=== PATIENT | male | born 1955 | race Caucasian/White ===

== ENCOUNTER 2016-12-03 01:09 | Inpatient (IN) | payer MEDICARE, OTHER ==
[~2016-12-03] VITALS: Ht 185.4 cm; Wt 72.6 kg
[~2016-12-03 01:09] MED LIST: ACET-2154 PO; ASCO500C16 PO; BISA10SU61 RC; CARB-93 PO; DEXT1CAP3 PO; DIVA250T4 PO; DOCU-141 PO; LAMO25TA5 PO; LORA-258 PO; MAGN400O6 PO; MULT-213 PO; NA P133E RC; VENL150C2 PO; ZINC220C8 PO; ZOLP5TAB2 PO
--- NOTE | 2016-12-03 01:22 | NUR ---
Patient BIB private ambulance for Medical Clearance and GPS admission. Patient arrives on 5150 hold for GD. Per hold, patient is "suffering worsening symptoms of psychosis and eric" and is refusing medications. Per hold, patient has not eaten today because he beleives that the food was poisioned. Patient is A/O x4, presents with Parkinson's like tremors. To room 3A.
[2016-12-03] MEDS ORDERED: DIVA500T4 PO (01:45)
[2016-12-03] MEDS ORDERED: LAMO25TA5 PO (01:45)
[2016-12-03] MEDS ORDERED: LEVO50TA8 PO (01:45)
[2016-12-03] MEDS ORDERED: LORAZEPAM 1 MG TABLET PO PRN (02:00)
[2016-12-03] MEDS ORDERED: ACETAMINOPHEN 325 MG TABLET PO PRN (02:00)
[2016-12-03] MEDS ORDERED: TEMAZEPAM 7.5 MG CAPSULE PO PRN (02:00)
[2016-12-03] MEDS ORDERED: MAGNESIUM HYDROXIDE 30 ML LIQUID UDC PO PRN (02:00)
[2016-12-03] MEDS ORDERED: MAG HYDROX/AL HYDROX/SIMETH 30 ML LIQUID UDC PO PRN (02:00)
--- NOTE | 2016-12-03 02:12 | NUR ---
Pt. admitted to GPS, under care of Dr. Phoenix Belongs List completed
[2016-12-03 02:54] VITALS: BP 143/93
--- NOTE | 2016-12-03 03:00 | NUR ---
GPS: Admitted earlier a 61 yr.old male from [facility] under the care of / in stable condition. Pt.is on a 72 hour hold for GD. Pt.has been off of his meds.for 2 weeks and has been refusing to eat thinking that he's being poisoned. Pt.is Aox3, intrusive,uncooperative,demanding during admission process. Easily irritable/agitated when being interviewed by staff. Belongings list completed. Refused/unable to sign paperworks. Safety emphasized. Re-directed prn. Will monitor behavior.
[2016-12-03 07:30] VITALS: BP 173/83
--- NOTE | 2016-12-03 08:31 | NUR ---
GPS: Nursing Notes: Refusing B/P Medication: Patient's B/P=173/83, P=88, refusing his antihypertensive medication PRN, believes that staff is trying to poison him, gets easily irritable and angry, verbal abusive toward staff, continue to monitor for safety, informed charge nurse, continue with treatment plan.
[2016-12-03] MEDS: CARBIDOPA/LEVODOPA 25-100MG TABLET PO SCH ×3 (09:45→16:17)
[2016-12-03] MEDS: LEVOTHYROXINE SODIUM 50 MCG TABLET PO SCH (09:45)
[2016-12-03] MEDS: DIVALPROEX SPRINKLE 125 MG CAP.SPRINK PO SCH ×2 (12:30→20:07)
[2016-12-03] MEDS ORDERED: DIVALPROEX SPRINKLE 125 MG CAP.SPRINK ONE (13:02)
[2016-12-03] MEDS ORDERED: CARBIDOPA/LEVODOPA 25-100MG TABLET ONE (13:02)
[2016-12-03 16:00] VITALS: BP 159/89
[2016-12-03] MEDS: CLONIDINE HCL 0.1 MG TABLET PO PRN (19:41)
--- NOTE | 2016-12-03 19:42 | NUR ---
GPS: B/P at this time is 169/96. Refused Clonidine prn when offered despite explanation of importance. Easily irritable when approached by staff. Will continue to monitor.
[2016-12-03 19:48] VITALS: BP 162/96
[2016-12-04] MEDS: LEVOTHYROXINE SODIUM 50 MCG TABLET PO SCH (06:32)
--- NOTE | 2016-12-04 06:40 | NUR ---
GPS: Pt.continues to refuse scheduled meds.despite explanation of importance. Paranoid,suspicious and easily irritable when being persuaded to take his meds. Continues to be demanding and verbally abusive when his demands are not granted. Safety emphasized. Will continue to re-direct prn.
[2016-12-04 07:30] VITALS: BP 112/70
[2016-12-04] MEDS: DIVALPROEX SPRINKLE 125 MG CAP.SPRINK PO SCH ×2 (08:05→20:52)
[2016-12-04] MEDS: CARBIDOPA/LEVODOPA 25-100MG TABLET PO SCH ×3 (08:06→16:22)
[2016-12-04 13:00] VITALS: BP 170/101
[2016-12-04] MEDS: CLONIDINE HCL 0.1 MG TABLET PO PRN (14:33)
--- NOTE | 2016-12-04 14:33 | NUR ---
GPS: Nursing Notes: Refusing Clonidine: Patient B/P= 175/101, P=84, refusing his antihypertensive medication PRN, continue to be paranoid, believes that we are trying to poison him, poor anger management, nurse in charge informed, continue to monitor the patient.
[2016-12-04] MEDS: OLANZAPINE ZYDIS 5 MG TAB.RAPDIS PO SCH (17:45)
--- NOTE | 2016-12-04 17:58 | NUR ---
GPS: Nursing Notes: Noncompliance With Medications: Patient is awake and responding to his name, poor anger management, poor impulse control, loud and pressured speech, refusing his psych. medications, stated, "You take them... I am a doctor..", paranoid, suspicious, guarded, believes that we are trying to poison him, verbal abusive toward staff, "Fuck you...", internally preoccupied, impaired judgment, "You work for me.... I paid your check... You are fired... Fuck you..", unable to formulate a plan for self care, continue with treatment plan.
[2016-12-04 19:30] VITALS: BP 153/98
[2016-12-05] MEDS: LEVOTHYROXINE SODIUM 50 MCG TABLET PO SCH (06:18)
[2016-12-05 07:30] VITALS: BP 139/85
[2016-12-05] MEDS: OLANZAPINE ZYDIS 5 MG TAB.RAPDIS PO SCH ×2 (08:34→16:33)
[2016-12-05] MEDS: CARBIDOPA/LEVODOPA 25-100MG TABLET PO SCH ×3 (08:34→16:33)
[2016-12-05] MEDS: DIVALPROEX SPRINKLE 125 MG CAP.SPRINK PO SCH ×2 (08:34→20:24)
[2016-12-05 15:31] VITALS: BP 152/90
[2016-12-05 20:00] VITALS: BP 162/98
[2016-12-05] MEDS: CLONIDINE HCL 0.1 MG TABLET PO PRN (20:24)
[2016-12-06] MEDS: LEVOTHYROXINE SODIUM 50 MCG TABLET PO SCH (06:14)
[2016-12-06 07:30] VITALS: BP 157/92
[2016-12-06] MEDS: CARBIDOPA/LEVODOPA 25-100MG TABLET PO SCH ×3 (08:50→16:49)
[2016-12-06] MEDS: OLANZAPINE ZYDIS 5 MG TAB.RAPDIS PO SCH ×2 (08:50→16:50)
[2016-12-06] MEDS: DIVALPROEX SPRINKLE 125 MG CAP.SPRINK PO SCH ×2 (08:50→21:00)
--- NOTE | 2016-12-06 09:20 | NUR ---
DC Note:Pt resides at [facility] [[address], [place], [place],[address];[phone]].Per pt,he would like to return back there upon discharge.Spoke with pt's sister,Sera Beal [phone] who stated she would like the pt to return there once stable.Per sister,she does not want the pt placed at a SNF upon discharge.MOMO called and left a voicemail in admissions requesting call back to discuss discharge plans.MOMO will speak with pt,family,and MD regarding appropriate discharge plans.SW will form a safe and proper discharge plan.
[2016-12-07] MEDS: LEVOTHYROXINE SODIUM 50 MCG TABLET PO SCH (07:00)
[2016-12-07 07:30] VITALS: BP 172/93
[2016-12-07] MEDS: DIVALPROEX SPRINKLE 125 MG CAP.SPRINK PO SCH ×2 (08:57→20:52)
[2016-12-07] MEDS: OLANZAPINE ZYDIS 5 MG TAB.RAPDIS PO SCH ×2 (08:57→17:00)
[2016-12-07] MEDS: CARBIDOPA/LEVODOPA 25-100MG TABLET PO SCH ×3 (08:57→17:00)
--- NOTE | 2016-12-07 13:13 | NUR ---
GPS/RN- patient scheduled for [facility] Day [facility] tomorrow and [facility] at 230pm, Dr Flor notified.
--- NOTE | 2016-12-07 13:14 | NUR ---
GPS/RN- patients , Nelida , here to visit , patient gave verbal consent to speak with her at this time, patient spoke with and Site Administrator Amanda at this time. questions and concerns addressed.
[2016-12-07 16:00] VITALS: BP 189/97
[2016-12-07] MEDS: CLONIDINE HCL 0.1 MG TABLET PO PRN (17:09)
[2016-12-07] MEDS: HYDROCHLOROTHIAZIDE 25 MG TABLET PO SCH (20:15)
[2016-12-08] MEDS: LEVOTHYROXINE SODIUM 50 MCG TABLET PO SCH (06:43)
[2016-12-08 07:30] VITALS: BP 170/109
[2016-12-08] MEDS: OLANZAPINE ZYDIS 5 MG TAB.RAPDIS PO SCH (08:18)
[2016-12-08] MEDS: HYDROCHLOROTHIAZIDE 25 MG TABLET PO SCH (08:18)
[2016-12-08] MEDS: CARBIDOPA/LEVODOPA 25-100MG TABLET PO SCH ×3 (08:18→17:00)
[2016-12-08] MEDS: DIVALPROEX SPRINKLE 125 MG CAP.SPRINK PO SCH ×2 (08:18→20:18)
--- NOTE | 2016-12-08 09:59 | NUR ---
GPS/RN- Patient received in bed this am, staff attempting to take vital signs, patient combative swinging towards staff. patient redirected , patient continues paranoid and suspicious, verbally abusive telling staff " Get the fuck out of here". patient redirected and educated we need to check blood pressure and other vitals to make sure he is stable. patient continues to have poor insight and impaired judgement. patient remains paranoid of food, believes it is being contaminated or poisoned by staff, refused am meal;patient also refused am meds, multiple attempts this am; verbalizing the meds are only intended to make his blood pressure higher, patient educated once again. Physical therapy also working with patient, passive range of motion, patient verbally abusive, verbalizing that they are breaking his hands, patient redirected range of motion provided to prevent any contractures of musculoskeletal issues, patient argumentative and irritable. unable to redirect,
[2016-12-08 15:49] VITALS: BP 151/94
[2016-12-08] MEDS: HALOPERIDOL LACTATE 10 MG/5 ML ORAL SOLUTION UDC PO SCH (17:00)
[2016-12-08] MEDS: BENZTROPINE MESYLATE 0.5 MG TABLET PO SCH (17:00)
[2016-12-08] MEDS: HALOPERIDOL LACTATE 5 MG/1 ML VIAL IM PRN (17:16)
[2016-12-08] MEDS: Z GUARD REMEDY PASTE 57 GM TUBE TOP SCH (20:18)
[2016-12-08 20:56] VITALS: BP 153/92
[2016-12-09] MEDS: LEVOTHYROXINE SODIUM 50 MCG TABLET PO SCH (06:35)
[2016-12-09 07:30] VITALS: BP 169/89
[2016-12-09] MEDS: BENZTROPINE MESYLATE 0.5 MG TABLET PO SCH ×2 (09:00→16:48)
[2016-12-09] MEDS: HALOPERIDOL LACTATE 10 MG/5 ML ORAL SOLUTION UDC PO SCH ×2 (09:00→16:48)
[2016-12-09] MEDS: DIVALPROEX SPRINKLE 125 MG CAP.SPRINK PO SCH ×2 (09:00→20:13)
[2016-12-09] MEDS: CARBIDOPA/LEVODOPA 25-100MG TABLET PO SCH ×3 (09:00→16:48)
[2016-12-09] MEDS: HYDROCHLOROTHIAZIDE 25 MG TABLET PO SCH (09:00)
[2016-12-09] MEDS: Z GUARD REMEDY PASTE 57 GM TUBE TOP SCH ×2 (09:06→20:13)
[2016-12-09] MEDS: HALOPERIDOL LACTATE 5 MG/1 ML VIAL IM PRN ×2 (09:42→17:01)
[2016-12-10] MEDS: LEVOTHYROXINE SODIUM 50 MCG TABLET PO SCH (06:36)
[2016-12-10 07:30] VITALS: BP 144/93
[2016-12-10] MEDS: CARBIDOPA/LEVODOPA 25-100MG TABLET PO SCH ×3 (08:38→16:24)
[2016-12-10] MEDS: DIVALPROEX SPRINKLE 125 MG CAP.SPRINK PO SCH ×2 (08:38→20:25)
[2016-12-10] MEDS: HYDROCHLOROTHIAZIDE 25 MG TABLET PO SCH (08:38)
[2016-12-10] MEDS: HALOPERIDOL LACTATE 10 MG/5 ML ORAL SOLUTION UDC PO SCH ×2 (08:38→16:22)
[2016-12-10] MEDS: BENZTROPINE MESYLATE 0.5 MG TABLET PO SCH ×2 (08:38→16:22)
[2016-12-10] MEDS: Z GUARD REMEDY PASTE 57 GM TUBE TOP SCH ×2 (08:39→20:25)
[2016-12-10] MEDS: HALOPERIDOL LACTATE 5 MG/1 ML VIAL IM PRN ×2 (08:51→16:31)
[2016-12-10 16:00] VITALS: BP 176/99
[2016-12-10] MEDS: CLONIDINE HCL 0.1 MG TABLET PO PRN (17:35)
[2016-12-10 20:56] VITALS: BP 159/92
[2016-12-11] MEDS: LEVOTHYROXINE SODIUM 50 MCG TABLET PO SCH (06:33)
[2016-12-11 07:30] VITALS: BP 163/98
[2016-12-11] MEDS: BENZTROPINE MESYLATE 0.5 MG TABLET PO SCH ×2 (08:41→16:47)
[2016-12-11] MEDS: HYDROCHLOROTHIAZIDE 25 MG TABLET PO SCH (08:41)
[2016-12-11] MEDS: DIVALPROEX SPRINKLE 125 MG CAP.SPRINK PO SCH ×2 (08:41→20:13)
[2016-12-11] MEDS: HALOPERIDOL LACTATE 10 MG/5 ML ORAL SOLUTION UDC PO SCH ×2 (08:41→16:47)
[2016-12-11] MEDS: Z GUARD REMEDY PASTE 57 GM TUBE TOP SCH ×2 (08:42→21:06)
[2016-12-11] MEDS: CARBIDOPA/LEVODOPA 25-100MG TABLET PO SCH ×3 (08:42→16:47)
[2016-12-11] MEDS: CLONIDINE HCL 0.1 MG TABLET PO PRN (09:32)
[2016-12-11] MEDS: HALOPERIDOL LACTATE 5 MG/1 ML VIAL IM PRN ×2 (09:36→16:54)
[2016-12-11 15:33] VITALS: BP 116/74
[2016-12-11 20:14] VITALS: BP 144/87
[2016-12-12] MEDS: LEVOTHYROXINE SODIUM 50 MCG TABLET PO SCH (06:29)
[2016-12-12 07:30] VITALS: BP 133/90
[2016-12-12] MEDS: BENZTROPINE MESYLATE 0.5 MG TABLET PO SCH ×2 (08:48→16:22)
[2016-12-12] MEDS: DIVALPROEX SPRINKLE 125 MG CAP.SPRINK PO SCH ×2 (08:49→20:13)
[2016-12-12] MEDS: HALOPERIDOL LACTATE 10 MG/5 ML ORAL SOLUTION UDC PO SCH ×2 (08:49→16:22)
[2016-12-12] MEDS: Z GUARD REMEDY PASTE 57 GM TUBE TOP SCH ×2 (08:49→20:18)
[2016-12-12] MEDS: HYDROCHLOROTHIAZIDE 25 MG TABLET PO SCH (08:49)
[2016-12-12] MEDS: CARBIDOPA/LEVODOPA 25-100MG TABLET PO SCH ×3 (08:49→16:22)
[2016-12-12] MEDS: HALOPERIDOL LACTATE 5 MG/1 ML VIAL IM PRN ×2 (09:03→18:15)
[2016-12-12 15:46] VITALS: BP 157/93
--- NOTE | 2016-12-12 17:57 | NUR ---
GPS: Nursing Notes: Noncompliance With Medications: Patient is awake and responding to his name, poor anger management, verbal abusive, provoking roommate to fight by using profanities and racial statement toward roommate, paranoid behavior, refusing his medications, believes that we are trying to poison him, resistant with nursing care, internally preoccupied, refusing to eat his meals, believes that the food is poison, impaired judgment, unable to formulate a plan for self care, continue with treatment plan.
[2016-12-12 20:00] VITALS: BP 128/80
[2016-12-13] MEDS: LEVOTHYROXINE SODIUM 50 MCG TABLET PO SCH (06:32)
[2016-12-13 07:30] VITALS: BP 137/74
[2016-12-13] MEDS: DIVALPROEX SPRINKLE 125 MG CAP.SPRINK PO SCH ×2 (09:00→21:00)
[2016-12-13] MEDS: BENZTROPINE MESYLATE 0.5 MG TABLET PO SCH ×2 (09:00→17:00)
[2016-12-13] MEDS: CARBIDOPA/LEVODOPA 25-100MG TABLET PO SCH ×3 (09:00→18:18)
[2016-12-13] MEDS: Z GUARD REMEDY PASTE 57 GM TUBE TOP SCH ×2 (09:00→21:06)
[2016-12-13] MEDS: HALOPERIDOL LACTATE 10 MG/5 ML ORAL SOLUTION UDC PO SCH ×2 (09:00→18:18)
[2016-12-13] MEDS: HYDROCHLOROTHIAZIDE 25 MG TABLET PO SCH (09:00)
[2016-12-13] MEDS: HALOPERIDOL LACTATE 5 MG/1 ML VIAL IM PRN ×2 (10:11→18:21)
[2016-12-13 16:00] VITALS: BP 145/87
[2016-12-13] MEDS ORDERED: MAGNESIUM HYDROXIDE 30 ML LIQUID UDC PO ONE (16:45)
[2016-12-13] MEDS: DOCUSATE SODIUM 100 MG CAPSULE PO SCH ×2 (18:21→21:00)
[2016-12-13 20:51] VITALS: BP 121/83
--- NOTE | 2016-12-13 22:00 | NUR ---
received to care, lying in bed, initially pleasant upon approach. PO fluids given to patient at his request, ice water and lemon [place] soda. his then came, and he allowed her to feed him a hamburger and more fluids. when approached with his medications, he refused. he also stated that staff would not give him anything to eat or drink. he was then offered more ice water, but demanded coffee. he was then offered bam crackers and juice, but he stated it was poisoned. when offered his medications, he refused, stating, "f--k you" as of 2199, he remains awake. no distress noted. diaper change provided. repositioned with pillows. will continue to monitor closely.
--- NOTE | 2016-12-13 23:00 | NUR ---
appears to be asleep. no distress noted.
--- NOTE | 2016-12-14 04:00 | NUR ---
pt is now awake, requesting water. he was offered water from his water pitcher, but he refused, stating he wanted "water that wasnt flat". he was brought fresh water with ice, but he declined. later, he requested water again. he was offered the newer water, and he agreed to drink with a straw. when a straw was provided, he stated he wanted a new straw, even though it was new, and opened right in front of him. firm limits were set. he then was verbally abusive. he was re approached yet again and offered water, but he again wanted fresh water, even when offered sealed bottled water. he then said "f--k you" "you people are keeping me against my will" he was offered water once more, but he continues to refuse.
--- NOTE | 2016-12-14 06:00 | NUR ---
slept 4 hours, total. assisted with AM care, and shower. currently in bed. continues to be verbally abusive. offered water, but refused. states he will only drink soda. firm limits set. will continue to monitor closely.
[2016-12-14] MEDS: LEVOTHYROXINE SODIUM 50 MCG TABLET PO SCH (07:00)
--- NOTE | 2016-12-14 07:00 | NUR ---
refused AM synthroid
[2016-12-14 07:29] LABS: BASOPHILS # (AUTO) 0.1 K/uL (0.0-8.0); BASOPHILS % (AUTO) 0.8 % (0.0-2.0); EOSINOPHILS # (AUTO) 0.2 K/uL (0.0-0.7); EOSINOPHILS % (AUTO) 3.1 % (0.0-7.0); HEMATOCRIT 42.2 % (40-50); HEMOGLOBIN 14.3 G/DL (14.0-18.0); LYMPHOCYTES # (AUTO) 2.3 K/UL (0.8-4.8); LYMPHOCYTES % (AUTO) 32.9 % (20.5-51.5); MEAN CORPUSCULAR HEMOGLOBIN 30.6 UUG (27.0-31.0); MEAN CORPUSCULAR HGB CONC 34 g/dL (32.0-37.0); MEAN CORPUSCULAR VOLUME 90.6 FL (82.0-92.0); MONOCYTES # (AUTO) 0.4 K/UL (0.1-1.30); MONOCYTES % (AUTO) 5.6 % (0.0-11.0); NEUTROPHILS # (AUTO) 4.1 K/UL (1.8-8.9); NEUTROPHILS % (AUTO) 57.6 % (38.5-71.5); PLATELET COUNT (AUTO) 416 K/UL (150-450); RED BLOOD CELL COUNT(AUTO) 4.66 MIL/UL (4.7-6.1); WHITE BLOOD COUNT (AUTO) 7.1 K/UL (4.0-11.2)
[2016-12-14 07:30] VITALS: BP 129/72
[2016-12-14 07:42] LABS: BILIRUBIN,TOTAL 0.3 mg/dL (0.2-1.0); CREATININE 1.5 mg/dL (0.6-1.3); PHOSPHOROUS 3.4 mg/dL (2.5-4.9); POTASSIUM 3.5 mmol/L (3.5-5.1); TOTAL PROTEIN, SERUM 7.3 g/dL (6.4-8.2)
[2016-12-14 07:58] LABS: THYROID STIMULATING HORMONE 2.587 mIU/mL (0.358-3.740)
[2016-12-14] MEDS: CARBIDOPA/LEVODOPA 25-100MG TABLET PO SCH ×3 (08:57→17:00)
[2016-12-14] MEDS: DOCUSATE SODIUM 100 MG CAPSULE PO SCH ×2 (08:57→21:00)
[2016-12-14] MEDS: HYDROCHLOROTHIAZIDE 25 MG TABLET PO SCH (08:57)
[2016-12-14] MEDS: DIVALPROEX SPRINKLE 125 MG CAP.SPRINK PO SCH ×2 (08:57→21:00)
[2016-12-14] MEDS: BENZTROPINE MESYLATE 0.5 MG TABLET PO SCH ×2 (08:57→17:00)
[2016-12-14] MEDS: HALOPERIDOL LACTATE 10 MG/5 ML ORAL SOLUTION UDC PO SCH ×2 (08:57→17:00)
[2016-12-14] MEDS: Z GUARD REMEDY PASTE 57 GM TUBE TOP SCH ×2 (10:29→20:44)
--- NOTE | 2016-12-14 11:06 | NUR ---
GPS/RN- Dr Flor notified of patient labs today, received verbal order to administer Haldol Deconate 25mg IM once at this time. orders read back.
[2016-12-14] MEDS ORDERED: HALOPERIDOL DECANOATE 50 MG/1 ML AMPUL IM ONE (11:15)
[2016-12-14 11:20] VITALS: BP 126/83
[2016-12-14] MEDS ORDERED: MAGNESIUM HYDROXIDE 30 ML LIQUID UDC PO ONE (16:00)
[2016-12-14] MEDS ORDERED: BISACODYL 10 MG SUPP.RECT RC ONE (16:00)
[2016-12-14 16:07] VITALS: BP 145/78
--- NOTE | 2016-12-14 16:53 | NUR ---
GPS/RN- Patient scheduled for discharge tomorrow. patient redirected to medication compliance; no bowel movement noted since admission and current orders for Milk Of Magnesia and suppository, patient addressed about medical concern of possible impaction/sever constipation. patient able to comply due to possible discharge tomorrow. compliant. continue to monitor. patient on left side at this time
[2016-12-14] MEDS: HALOPERIDOL LACTATE 5 MG/1 ML VIAL IM PRN (17:45)
[2016-12-14 19:30] VITALS: BP 146/44
--- NOTE | 2016-12-14 22:00 | NUR ---
received to care, lying in bed, verbally hostile, and sarcastic, upon approach. remains delusional and paranoid. refused all medications offered. believes staff is conspiring against him. had a small, soft bowel movement. po fluids given. as of 2199, he appears to be asleep. no dsitress noted. will continue to monitor closely.
[2016-12-15] MEDS ORDERED: BISACODYL 10 MG SUPP.RECT RC PRN (06:00)
--- NOTE | 2016-12-15 06:00 | NUR ---
slept 3 hours total. assisted with AM care, and diaper change. no further episodes of stool. no distress noted. will continue to monitor closely.
[2016-12-15] MEDS: LEVOTHYROXINE SODIUM 50 MCG TABLET PO SCH ×2 (06:12→10:21)
[2016-12-15 07:30] VITALS: BP 141/88
[2016-12-15 07:53] LABS: BASOPHILS % (AUTO) 0.2 % (0.0-2.0); EOSINOPHILS # (AUTO) 0.1 K/uL (0.0-0.7); EOSINOPHILS % (AUTO) 0.8 % (0.0-7.0); HEMATOCRIT 44.2 % (40-50); HEMOGLOBIN 14.6 G/DL (14.0-18.0); LYMPHOCYTES # (AUTO) 1.3 K/UL (0.8-4.8); LYMPHOCYTES % (AUTO) 8.2 % (20.5-51.5); MEAN CORPUSCULAR HEMOGLOBIN 29.3 UUG (27.0-31.0); MEAN CORPUSCULAR HGB CONC 33 g/dL (32.0-37.0); MEAN CORPUSCULAR VOLUME 88.9 FL (82.0-92.0); MONOCYTES % (AUTO) 5.8 % (0.0-11.0); PLATELET COUNT (AUTO) 445 K/UL (150-450); RED BLOOD CELL COUNT(AUTO) 4.98 MIL/UL (4.7-6.1)
[2016-12-15 07:55] LABS: WHITE BLOOD COUNT (AUTO) 16.4 K/UL (4.0-11.2)
[2016-12-15 08:22] LABS: BILIRUBIN,DIRECT 0.1 mg/dL (0.0-0.2); BILIRUBIN,TOTAL 0.5 mg/dL (0.2-1.0); CREATININE 1.3 mg/dL (0.6-1.3); MAGNESIUM 2.1 mg/dL (1.8-2.4); PHOSPHOROUS 2.7 mg/dL (2.5-4.9); POTASSIUM 3.7 mmol/L (3.5-5.1)
--- NOTE | 2016-12-15 08:22 | NUR ---
DC Note: Patient [place] be [place] today [place] [place] [address] via private transportation at 12:00 pm. Patient will be picked up by his , Audrey [phone]. Audrey stated she will take the patient home. Patient is aware and agreeable with discharge plans. Spoke with patients sister, Sera [phone] who is aware and agreeable with discharge plans. Patient will follow-up with [[address] [place] [address]]. Patient was referred to , , and [phone] for psychiatric referrals. A home health order was faxed to [facility] [ /Fx: [phone]] for safety evaluation. The patient will attend [employer] on Sunday12/18/16 at 2:00 pm [[address] [place] [address]].
[2016-12-15] MEDS: Z GUARD REMEDY PASTE 57 GM TUBE TOP SCH (09:00)
[2016-12-15] MEDS: DIVALPROEX SPRINKLE 125 MG CAP.SPRINK PO SCH ×2 (09:00→10:21)
[2016-12-15] MEDS: DOCUSATE SODIUM 100 MG CAPSULE PO SCH (09:00)
[2016-12-15 10:00] LABS: BAND % (MANUAL) 5 % (0-10); LYMPHOCYTES % (MANUAL) 10 % (20-40); MONOCYTES % (MANUAL) 9 % (2-10); NEUTROPHILS % (MANUAL) 76 % (42-75)
[2016-12-15] MEDS: BENZTROPINE MESYLATE 0.5 MG TABLET PO SCH ×2 (10:20→10:41)
[2016-12-15] MEDS: HALOPERIDOL LACTATE 10 MG/5 ML ORAL SOLUTION UDC PO SCH ×2 (10:20→10:30)
[2016-12-15] MEDS: CARBIDOPA/LEVODOPA 25-100MG TABLET PO SCH ×3 (10:20→12:25)
[2016-12-15] MEDS: HYDROCHLOROTHIAZIDE 25 MG TABLET PO SCH ×2 (10:22→10:39)
[2016-12-15] MEDS: HALOPERIDOL LACTATE 5 MG/1 ML VIAL IM PRN (10:32)
[2016-12-15 10:39] VITALS: BP 141/88
--- NOTE | 2016-12-15 13:30 | NUR ---
GPS/NURSING/DC NOTE PT IS BEING DISCHARGED TO GO HOME. HIS ALEXEI IS HERE TO PICK HIM UP. INSTRUCTIONS ARE GIVEN TO THE , INCLUDING MEDICATION TEACHING. MEDICATIONS WERE CALLED IN TO [facility] ([phone], FAX: [phone]). PT WILL BE FOLLOWED UP BY [facility]. PT IS ALERT AND WILLING TO GO. UNDERSTANDS THE NEED TO F/U WITH PSYCHIATRIST.
--- NOTE | 2016-12-15 14:19 | NUR ---
patient discharged with at side in nom acute distress and with all belongings to private car
--- NOTE | 2016-12-15 15:14 | NUR ---
PT WAS DISCHARGED. PT RECEIVED PRESCRIPTION MEDICATIONS UPON DISCHARGED. PT'S PHARMACY, [facility] ([phone]) DOES NOT FILL HALDOL DECAN INJECTABLE. NOTIFIED PT'S ALEXEI, AND INFORMED THAT SHE NEEDS TO FIND ANOTHER PHARMACY THAT CAN FILL THE MEDICATIONS.
== END 2016-12-15 14:46 | disposition home health service (06) | DRG 885 ==
LOC: ER 01:12 → GPS 01:46
PROVIDERS: ADMIT Psychiatry & Neurology Psychiatry; ATTEND Internal Medicine
DX: F25.0 Schizoaffective disorder, bipolar type (principal); N17.0 Acute kidney failure with tubular necrosis; N18.9 Chronic kidney disease, unspecified; E03.9 Hypothyroidism, unspecified; Z87.01 Personal history of pneumonia (recurrent); Z91.14 Patient's other noncompliance with medication regimen; G20 Parkinson's disease; H40.9 Unspecified glaucoma; T50.2X5A Adverse effect of carbonic-anhydrase inhibitors, benzothiadiazides and other diuretics, initial encounter; Y92.89 Other specified places as the place of occurrence of the external cause; I12.9 Hypertensive chronic kidney disease with stage 1 through stage 4 chronic kidney disease, or unspecified chronic kidney disease; G40.909 Epilepsy, unspecified, not intractable, without status epilepticus; F41.9 Anxiety disorder, unspecified; Z79.899 Other long term (current) drug therapy; Z82.49 Family history of ischemic heart disease and other diseases of the circulatory system; Z83.3 Family history of diabetes mellitus; E78.5 Hyperlipidemia, unspecified; D64.9 Anemia, unspecified; K59.00 Constipation, unspecified
CPT/HCPCS: 36415; 71010; 74000; 83735; 84100; 84443; 85025; 93005; 97110; 97116; 97161; 97530; A4663; J1630; J1631